=== PATIENT | male | born 2000 | race Caucasian/White ===

== ENCOUNTER 2020-07-14 22:18 | Emergency (ER) | payer OTHER ==
[~2020-07-14 22:18] MED LIST: AUGMENTIN 875-1 EACH PO; IBUPROFEN800 MG PO; NAPROSYN500 MG PO; NORCO 7.5-3251 EACH PO; ONDANSETRON ODT4 MG PO
[2020-07-16] MEDS ORDERED: ZOVIRAX 800 MG800 MG PO (16:54)
[2020-07-16] MEDS ORDERED: PREDNISONE 20 M20 MG PO (16:54)
== END 2020-07-15 00:20 | disposition left against medical advice (07) ==
LOC: ER1 22:18
DX: Z53.21 Procedure and treatment not carried out due to patient leaving prior to being seen by health care provider (principal)

== ENCOUNTER 2020-07-16 14:57 | Emergency (ER) | payer OTHER ==
[2020-07-16 15:52] LABS: HEMOGLOBIN 17.4 gm/dl (14.0-17.5); RED BLOOD COUNT 5.86 M/UL (4.20-5.50); WHITE BLOOD COUNT 8.6 K/UL (4.5-11.0)
[2020-07-16 16:11] LABS: BUN/CREATININE RATIO 12 (0-10)
[2020-07-16] MEDS ORDERED: PREDNISONE 20 M20 MG PO (16:54)
[2020-07-16] MEDS ORDERED: ZOVIRAX 800 MG800 MG PO (16:54)
== END 2020-07-16 17:52 | disposition home or self-care (01) ==
LOC: ER1 14:57
PROVIDERS: Emergency Medicine
DX: G51.0 Bell's palsy (principal); F17.210 Nicotine dependence, cigarettes, uncomplicated
CPT/HCPCS: 70450; 80053; 85025; 99285

== ENCOUNTER 2021-05-20 21:22 | Emergency (ER) | payer OTHER ==
[~2021-05-20 21:22] MED LIST changes: +PREDNISONE 20 M20 MG PO; +ZOVIRAX 800 MG800 MG PO
[2021-05-20 21:44] LABS: HEMOGLOBIN 16.7 gm/dl (14.0-17.5); RED BLOOD COUNT 5.87 M/UL (4.20-5.50); WHITE BLOOD COUNT 9.9 K/UL (4.5-11.0)
[2021-05-20 22:08] LABS: BUN/CREATININE RATIO 11 (0-10)
[2021-05-20] MEDS ORDERED: HYDROCODON-ACE1 EAC4 PO (22:55)
[2021-05-20] MEDS ORDERED: FLOMAX0.4 MG PO (22:57)
== END 2021-05-20 23:15 | disposition home or self-care (01) ==
LOC: ER1 21:22
PROVIDERS: Emergency Medicine
DX: N13.2 Hydronephrosis with renal and ureteral calculous obstruction (principal); F17.200 Nicotine dependence, unspecified, uncomplicated; Z87.442 Personal history of urinary calculi
CPT/HCPCS: 80053; 81001; 83690; 85025; 96374; 96375; 99284; J1885; J2270; J2405